=== PATIENT | male | born 1965 | race American Indian/Alaskan Native ===

== ENCOUNTER 2017-07-23 08:55 | Inpatient (IN) | payer MEDICAID ==
[2017-07-11 18:18] VITALS: BMI 35.1
[2017-07-23] MEDS ORDERED: Propofol 10 mg/ml Inj (20 ML) ONE (11:16)
[2017-07-23] MEDS ORDERED: Succinylcholine Chloride 20 mg/ml Syr (5 ml) IV ONE (11:18)
[2017-07-23] MEDS ORDERED: ceFAZolin 1 gm in NS 1 GM/100 ML BAG IVPB ONE (12:29)
[2017-07-23] MEDS ORDERED: Lactated Ringer's 1,000 ML IV ONE (12:30)
[2017-07-23] MEDS ORDERED: Lidocaine 2% Jelly (Uro-Jet) ONE (12:50)
[2017-07-23] MEDS ORDERED: Bupivacaine HCl 0.25% PF (10 ml) Inj ONE ×2 (12:59)
[2017-07-23] MEDS ORDERED: Midazolam 2 MG/2 ML VIAL ONE (13:49)
[2017-07-23] MEDS ORDERED: Midazolam 2 MG/2 ML VIAL IVP PRN (13:52)
[2017-07-23] MEDS ORDERED: HYDROmorphone 0.5 mg/0.5 ml ISec IVP PRN (13:52)
--- NOTE | 2017-07-23 14:08 | RAD ---
HISTORY: post op COMPARISON: No prior. FINDINGS: LUNGS: No active pulmonary disease. PLEURA: No significant pleural effusion identified, no pneumothorax apparent. CARDIOVASCULAR: Cardiomediastinal silhouette appears enlarged; however, this cannot be accurately assessed on an AP projection. OSSEOUS STRUCTURES: Degenerative changes. VISUALIZED UPPER ABDOMEN: Normal. OTHER FINDINGS: Endotracheal tube with tip between the clavicles and misty. IMPRESSION: Endotracheal tube in satisfactory position.
[2017-07-23 17:01] VITALS: RESP 20; O2SAT 97
[2017-07-23] MEDS: Oxycodone/Acetaminophen 5/325 mg Tab PO PRN (20:30)
[2017-07-23] MEDS: Enoxaparin 30 mg Syringe SC SCH (22:00)
--- NOTE | 2017-07-23 22:55 | OP ---
PROCEDURE DATE: 07/23/2017. PREOPERATIVE DIAGNOSIS: Midline ventral hernia. POSTOPERATIVE DIAGNOSES: Midline ventral hernia with multiple adhesions. PROCEDURE PERFORMED: Repair of ventral hernia with extensive lysis of adhesions. SURGEON: Dr. Pond. TYPE OF ANESTHESIA: General. ESTIMATED BLOOD LOSS: 50 mL. POSTOPERATIVE CONDITION: Stable. INDICATIONS FOR SURGERY: This is 52-year-old male with mildly large midline ventral hernia, who now will undergo operative repair. GROSS FINDINGS: There was a large hernia sac, which contained both omentum, small bowel and transverse colon. There were multiple adhesions among the contents which had to be taken down. Small serosal injuries of both the small bowel colon were repaired with silk once the hernia sac had been removed and hernia site cleared of adhesions, a primary repair was accomplished. DESCRIPTION OF PROCEDURE: The patient was taken to the operating room, general anesthesia was administered. A transverse incision was made near the umbilicus. A large hernia sac was almost immediately encountered and the sac was dissected free down transected carefully using the Bovie. The contents of the hernia sac were released and there was multiple adhesions to the sac. The adhesions were taken down from the hernia sac and the abdominal wall. Once this had been cleared, a mesenteric blood vessel which was bleeding was repaired. A primary repair was accomplished with interrupted 0 Prolene suture. There was an overlying tissue defect, so a full thickness advancement flap was performed by mobilizing, utilizing counter incisions and closing an area of greater than 30 square cm via advancement flap closure. The skin was closed with skin clips. The patient tolerated the procedure well. Returned to recovery room in stable condition. Shravan Pond MD
[2017-07-24] MEDS: Dextrose 5%/0.45% NS 1,000 ML IV SCH ×3 (00:05→13:41)
[2017-07-24] MEDS: Oxycodone/Acetaminophen 5/325 mg Tab PO PRN ×3 (00:50→14:04)
[2017-07-24 07:11] LABS: BASO % 0.3 % (0.0-2.0); EOS # 0.1 K/uL (0.0-0.7); EOS % 1.6 % (0.0-4.0); HEMOGLOBIN 14.1 g/dL (12.0-18.0); LYMPH # 3.2 K/uL (1.0-4.3); LYMPH % 34.7 % (20.0-40.0); MEAN CORPUSCULAR HEMOGLOBIN 31.7 pg (27.0-31.0); MEAN CORPUSCULAR HGB CONC 34.1 g/dL (33.0-37.0); MEAN PLATELET VOLUME 7.5 fL (7.2-11.7); MONO % 11.2 % (0.0-10.0); NEUT # 4.8 K/uL (1.8-7.0); NEUT % 52.2 % (50.0-75.0); NRBC % 0.1 % (0.0-2.0); RBC 4.45 Mil/uL (4.40-5.90); RED CELL DISTRIBUTION WIDTH 13.9 % (11.5-14.5); WHITE BLOOD COUNT 9.3 K/uL (4.8-10.8)
[2017-07-24 07:23] LABS: BLOOD UREA NITROGEN 9 mg/dL (9-20); GFR AFRICAN-AMERICAN > 60; GFR NON-AFRICAN AMERICAN > 60
[2017-07-24] MEDS: Enoxaparin 30 mg Syringe SC SCH (09:39)
[2017-07-24] MEDS ORDERED: Pneumococcal 23-Valent Vaccine IM ONE ×2 (10:00→11:30)
[2017-07-24 15:56] VITALS: BP 133/86; PULSE 72; TEMP 98.1
--- NOTE | 2017-07-25 07:56 | CON ---
DATE: HISTORY OF PRESENT ILLNESS: The patient is 52-year-old male, who also is complaining of abdominal hernia pain. The patient has hypertension. PHYSICAL EXAMINATION: GENERAL: The patient is awake and alert. VITAL SIGNS: Temperature 98, pulse is 90. HEENT: Within normal limits NECK: Supple. CHEST: Symmetrical. HEART: Regular. ABDOMEN: Soft and obese. EXTREMITIES: No edema. ASSESSMENT: The patient suffered for abdominal hernia. The patient get surgery. Blood pressure monitoring. Antolin Chaves MD
== END 2017-07-24 17:19 | disposition home or self-care (01) | DRG 160 ==
LOC: C.SDS 08:55 → C.9S 13:13 → C.3T 14:32
PROVIDERS: ADMIT Surgery; ATTEND Surgery
PROC: 0WQF0ZZ Repair Abdominal Wall, Open Approach (ICD-10-PCS; principal; 2017-07-23 10:00)
DX: K43.9 Ventral hernia without obstruction or gangrene (principal); I10 Essential (primary) hypertension